=== PATIENT | male | born 2000 | race African-American/Black ===

== ENCOUNTER 2024-08-13 10:54 | Emergency (ER) | payer BC ==
[2024-08-13 11:22] VITALS: PULSE 55; RESP 20; BMI 23.7
[2024-08-13] MEDS ORDERED: KETOROLAC TROMETHAMINE 30 MG/1 ML VIAL ONE (11:25)
[2024-08-13] MEDS ORDERED: diazePAM 5 MG TABLET ONE (11:25)
[2024-08-13] MEDS: KETOROLAC TROMETHAMINE 30 MG/1 ML VIAL IM ONE (11:35)
[2024-08-13] MEDS: diazePAM 5 MG TABLET PO ONE (11:35)
[2024-08-13 12:50] VITALS: TEMP 97.9
[2024-08-13 13:28] VITALS: BP 136/79
== END 2024-08-13 13:28 | disposition home or self-care (01) ==
LOC: JER 10:54
PROC: 3E0233Z Introduction of Anti-inflammatory into Muscle, Percutaneous Approach (ICD-10-PCS; principal; 2024-08-13)
DX: S43.004A Unspecified dislocation of right shoulder joint, initial encounter (principal); X50.1XXA Overexertion from prolonged static or awkward postures, initial encounter
CPT/HCPCS: 73030-TC-RT-FY; 99284-25